=== PATIENT | female | born 1960 | race Hispanic/Latino ===

== ENCOUNTER 2021-06-28 16:25 | Inpatient (IN) | payer BC ==
[~2021-06-28] VITALS: Ht 162.6 cm; Wt 61.4 kg
[~2021-06-28 16:25] MED LIST: AEC81 PO; ATOR40TA71 PO; CARV25TA PO; CLOP75TA32 PO; ESCI-8 PO; FERR-72 PO; FOLI1 PO; IBUP-2070 PO; INSU3INS3 SQ; ISOS10TA2 PO; LEVO500T90 PO; LOSA100T58 PO; METF-526 PO; METR-172 PO; ONDA4TAB10 PO; PANT40TA54 PO; VITAD50000 PO
[2021-06-28] MEDS ORDERED: MAG/ALUM/SIMETH 30 ML UDCUP PO ONE (17:00)
[2021-06-28] MEDS ORDERED: ONDANSETRON 4MG INJ IVP ONE (17:00)
[2021-06-28] MEDS ORDERED: LIDOCAINE HCL 2% VISCOUS 15 ML UDCUP ONE (17:30)
[2021-06-28] MEDS ORDERED: DICYCLOMINE HCL 10 MG/5 ML ML PO ONE (17:31)
[2021-06-28 18:39] LABS: BASOPHILS % (AUTO) 0.3 % (0.0-5.0); EOSINOPHILS % (AUTO) 0.2 % (0.0-8.0); LYMPHOCYTES % (AUTO) 15.2 % (21.0-51.0); MEAN CORPUSCULAR HEMOGLOBIN 27.4 pg (27.0-33.0); MEAN CORPUSCULAR HGB CONC 32.1 g/dL (32.0-36.0); MEAN CORPUSCULAR VOLUME 85.2 fL (79-99); MONOCYTES % (AUTO) 4.9 % (3.0-13.0); NEUTROPHILS % (AUTO) 78.9 % (40.0-77.0); PLATELET COUNT (AUTO) 367 K/uL (130-400); RED BLOOD CELL COUNT(AUTO) 4.46 MIL/uL (4.00-5.50); RED CELL DISTRIBUTION WIDTH 15.5 % (11.0-15.5); WHITE BLOOD COUNT (AUTO) 11.1 K/uL (4.8-10.8)
[2021-06-28 18:39] LABS: APPEARANCE,URINE CLOUDY (CLEAR); BILIRUBIN,URINE MODERATE (NEGATIVE); COLOR,URINE YELLOW (YELLOW); GLUCOSE, URINE (UA) NEGATIVE (NEGATIVE); KETONES,URINE 40 mg/dL (NEGATIVE); LEUKOCYTE ESTERASE ,URINE TRACE (NEGATIVE); NITRATE,URINE NEGATIVE (NEGATIVE); OCCULT BLOOD,URINE NEGATIVE (NEGATIVE); PH,URINE 5.5 (5.0-8.0); PROTEIN,URINE TRACE mg/dL (NEGATIVE)
[2021-06-28 18:46] LABS: CREATININE 0.8 mg/dL (0.5-1.5); POTASSIUM 3.7 mmol/L (3.5-5.1)
[2021-06-28 18:51] LABS: ALBUMIN 3.8 g/dL (3.5-5.0); BILIRUBIN,TOTAL 0.3 mg/dL (0.2-1.0); TOTAL PROTEIN, SERUM 8.5 g/dL (6.0-8.3)
[2021-06-28] MEDS ORDERED: MORPHINE 2 MG SYG IVP ONE (19:00)
[2021-06-28] MEDS ORDERED: ONDANSETRON 4MG INJ IV PRN (19:00)
[2021-06-28] MEDS ORDERED: METRONIDAZOLE 500 MG TABLET PO SCH (19:00)
[2021-06-28] MEDS ORDERED: ZOSYN 3.375GM+NS 50ML 3.38 GM in 0.9%NACL 50ML 50 ML IV SCH (19:00)
[2021-06-28] MEDS ORDERED: ACETAMINOPHEN 325 MG TAB PO PRN (19:00)
[2021-06-28 19:10] LABS: BACTERIA,URINE Few /HPF (None Seen); RBC,URINE 0-1 /HPF (0-1); SQUAMOUS EPITHELIAL CELL,UR Many /HPF (0-2)
[2021-06-28 19:11] LABS: MUCUS,URINE Moderate LPF (None Seen); TRANSITIONAL EPI CELLS,URINE Few /HPF (None Seen)
[2021-06-28 19:39] LABS: PROTHROMBIN TIME 10.9 SEC (9.6-11.6)
[2021-06-28 19:41] LABS: PARTIAL THROMBOPLASTIN TIME 25.5 SEC (26.3-35.5)
[2021-06-28] MEDS ORDERED: 0.9%NACL 50ML 50 ML IV ONE (20:10)
[2021-06-28] MEDS: LACTATED RINGERS 1000ML 1,000 ML IV SCH (20:21)
[2021-06-28] MEDS: FAMOTIDINE 20MG VIAL IV SCH (20:21)
[2021-06-28] MEDS: ZOSYN 3.375GM +NS 50ML IV SCH (20:26)
[2021-06-28] MEDS: METRONIDAZOLE 500MG/100ML BAG 100 ML IV SCH (20:34)
[2021-06-28] MEDS ORDERED: ZOSYN 3.375GM+NS 50ML 50 ML IV SCH (21:00)
[2021-06-29] MEDS: MORPHINE 4 MG SYG IV PRN ×4 (00:32→21:16)
[2021-06-29 01:57] VITALS: BP 128/62
[2021-06-29] MEDS: METRONIDAZOLE 500MG/100ML BAG 100 ML IV SCH ×3 (03:31→21:02)
[2021-06-29 03:52] VITALS: BP 121/71
[2021-06-29] MEDS: ZOSYN 3.375GM +NS 50ML IV SCH ×3 (04:42→21:04)
[2021-06-29 05:24] LABS: BASOPHILS % (AUTO) 0.4 % (0.0-5.0); EOSINOPHILS % (AUTO) 0.8 % (0.0-8.0); HEMATOCRIT 32.4 % (36-48); LYMPHOCYTES % (AUTO) 31.7 % (21.0-51.0); MEAN CORPUSCULAR HEMOGLOBIN 26.8 pg (27.0-33.0); MEAN CORPUSCULAR HGB CONC 31.5 g/dL (32.0-36.0); MONOCYTES % (AUTO) 8.6 % (3.0-13.0); NEUTROPHILS % (AUTO) 58.1 % (40.0-77.0); PLATELET COUNT (AUTO) 304 K/uL (130-400); RED BLOOD CELL COUNT(AUTO) 3.81 MIL/uL (4.00-5.50); RED CELL DISTRIBUTION WIDTH 15.7 % (11.0-15.5); WHITE BLOOD COUNT (AUTO) 7.3 K/uL (4.8-10.8)
[2021-06-29 05:35] LABS: CREATININE 0.7 mg/dL (0.5-1.5); MAGNESIUM 2.1 mg/dL (1.80-2.40); PHOSPHORUS 4.1 mg/dL (2.5-4.9); POTASSIUM 3.8 mmol/L (3.5-5.1)
[2021-06-29 08:55] VITALS: BP 114/59
[2021-06-29] MEDS: FAMOTIDINE 20MG VIAL IV SCH ×2 (09:11→21:02)
[2021-06-29] MEDS: LACTATED RINGERS 1000ML 1,000 ML IV SCH (09:12)
[2021-06-29 11:09] VITALS: BP 116/67
[2021-06-29] MEDS ORDERED: PHENOL 177 ML BOTTLE PO PRN (12:00)
[2021-06-29 17:07] VITALS: BP 126/69
[2021-06-29 20:00] VITALS: BP 126/75
[2021-06-30] VITALS (7 sets, daily range): BP systolic 118–129; BP diastolic 59–71
[2021-06-30] MEDS: ZOSYN 3.375GM +NS 50ML IV SCH ×3 (03:28→20:21)
[2021-06-30] MEDS: LACTATED RINGERS 1000ML 1,000 ML IV SCH ×2 (03:28→11:00)
[2021-06-30] MEDS: METRONIDAZOLE 500MG/100ML BAG 100 ML IV SCH ×3 (03:28→20:19)
[2021-06-30] MEDS: MORPHINE 4 MG SYG IV PRN ×2 (03:33→11:52)
[2021-06-30] MEDS: FAMOTIDINE 20MG VIAL IV SCH ×2 (09:12→20:18)
[2021-07-01] MEDS: LACTATED RINGERS 1000ML 1,000 ML IV SCH ×2 (00:20→13:39)
[2021-07-01 04:36] VITALS: BP 127/75
[2021-07-01] MEDS: ZOSYN 3.375GM +NS 50ML IV SCH ×3 (04:50→22:44)
[2021-07-01] MEDS: METRONIDAZOLE 500MG/100ML BAG 100 ML IV SCH ×3 (04:51→21:24)
[2021-07-01 05:01] LABS: HEMATOCRIT 34.8 % (36-48); MEAN CORPUSCULAR HEMOGLOBIN 27.3 pg (27.0-33.0); MEAN CORPUSCULAR VOLUME 88.1 fL (79-99); PLATELET COUNT (AUTO) 294 K/uL (130-400); RED BLOOD CELL COUNT(AUTO) 3.95 MIL/uL (4.00-5.50); RED CELL DISTRIBUTION WIDTH 15.5 % (11.0-15.5); WHITE BLOOD COUNT (AUTO) 6.9 K/uL (4.8-10.8)
[2021-07-01] MEDS: MORPHINE 4 MG SYG IV PRN (05:04)
[2021-07-01 05:20] LABS: CREATININE 0.7 mg/dL (0.5-1.5); POTASSIUM 3.5 mmol/L (3.5-5.1)
[2021-07-01 08:00] VITALS: BP 122/66
[2021-07-01] MEDS: FAMOTIDINE 20MG VIAL IV SCH ×2 (09:38→20:42)
[2021-07-01 12:00] VITALS: BP 118/63
[2021-07-01] MEDS: DOCUSATE SODIUM 100 MG CAP PO SCH (13:39)
[2021-07-01 16:00] VITALS: BP 115/65
[2021-07-01 19:50] VITALS: BP 139/67
[2021-07-01 23:32] VITALS: BP 146/56
[2021-07-02] MEDS: LACTATED RINGERS 1000ML 1,000 ML IV SCH (03:00)
[2021-07-02 04:32] VITALS: BP 116/65
[2021-07-02] MEDS: METRONIDAZOLE 500MG/100ML BAG 100 ML IV SCH ×2 (05:57→13:31)
[2021-07-02] MEDS: ZOSYN 3.375GM +NS 50ML IV SCH ×2 (05:57→14:00)
[2021-07-02 08:00] VITALS: BP 116/81
[2021-07-02] MEDS: FAMOTIDINE 20MG VIAL IV SCH (09:44)
[2021-07-02 12:00] VITALS: BP 105/50
[2021-07-02] MEDS: DOCUSATE SODIUM 100 MG CAP PO SCH (13:31)
== END 2021-07-02 18:30 | disposition home or self-care (01) | DRG 394 ==
LOC: EDH 16:25 → EDHIP 18:54 → 3BH 06-29 00:44
PROVIDERS: ADMIT Internal Medicine; ATTEND Internal Medicine
PROC: 0D9670Z Drainage of Stomach with Drainage Device, Via Natural or Artificial Opening (ICD-10-PCS; principal; 2021-06-28)
DX: K43.6 Other and unspecified ventral hernia with obstruction, without gangrene (principal); N39.0 Urinary tract infection, site not specified; K57.90 Diverticulosis of intestine, part unspecified, without perforation or abscess without bleeding; I10 Essential (primary) hypertension; D72.829 Elevated white blood cell count, unspecified; Z20.822 Contact with and (suspected) exposure to COVID-19; Z90.49 Acquired absence of other specified parts of digestive tract; Z82.3 Family history of stroke; Z84.1 Family history of disorders of kidney and ureter; Z82.49 Family history of ischemic heart disease and other diseases of the circulatory system; D64.9 Anemia, unspecified
CPT/HCPCS: 36415; 71045; 74176; 80048; 80053; 81001; 83605; 83615; 83690; 83735; 84100; 84484; 85025; 85027; 85610; 85730; 87040; 87088; 87635; 93005; G0378; J2270; J2405; J2543; J3490; J7120

== ENCOUNTER 2021-07-07 04:14 | Inpatient (IN) | payer BC ==
[~2021-07-07] VITALS: Ht 160 cm; Wt 63.8 kg
[2021-07-07] MEDS: ZOSYN 3.375GM+NS 50ML 50 ML IV SCH ×2 (01:00→14:00)
[2021-07-07] MEDS ORDERED: ONDANSETRON 4MG INJ IVP ONE (04:30)
[2021-07-07] MEDS ORDERED: METOCLOPRAMIDE 10 MG/2 ML VIAL IVP ONE (04:30)
[2021-07-07] MEDS ORDERED: 0.9%NACL 1000ML 1,000 ML IV ONE (04:30)
[2021-07-07] MEDS ORDERED: METOCLOPRAMIDE 10 MG/2 ML VIAL ONE (04:39)
[2021-07-07] MEDS ORDERED: ACETAMINOPHEN 500 MG TABLET ONE (04:40)
[2021-07-07] MEDS ORDERED: ZOSYN 3.375GM+NS 50ML 50 ML ONE (04:40)
[2021-07-07] MEDS ORDERED: ONDANSETRON 4MG INJ ONE (04:40)
[2021-07-07 05:00] LABS: BASOPHILS % (AUTO) 0.2 % (0.0-5.0); EOSINOPHILS % (AUTO) 1.9 % (0.0-8.0); HEMATOCRIT 32.4 % (36-48); MEAN CORPUSCULAR HEMOGLOBIN 27.2 pg (27.0-33.0); MEAN CORPUSCULAR HGB CONC 32.7 g/dL (32.0-36.0); MEAN CORPUSCULAR VOLUME 83.3 fL (79-99); MONOCYTES % (AUTO) 3.3 % (3.0-13.0); NEUTROPHILS % (AUTO) 89.4 % (40.0-77.0); PLATELET COUNT (AUTO) 275 K/uL (130-400); RED BLOOD CELL COUNT(AUTO) 3.89 MIL/uL (4.00-5.50); RED CELL DISTRIBUTION WIDTH 16.1 % (11.0-15.5)
[2021-07-07] MEDS ORDERED: ACETAMINOPHEN 500 MG TABLET PO ONE (05:00)
[2021-07-07] MEDS ORDERED: ZOSYN 3.375GM+NS 50ML 3.38 GM in 0.9%NACL 50ML 50 ML IV SCH ×2 (05:00→08:30)
[2021-07-07] MEDS ORDERED: MORPHINE 2 MG SYG IVP ONE (05:00)
[2021-07-07 05:10] LABS: INR 1.19 (0.85-1.15); PROTHROMBIN TIME 12.8 SEC (9.6-11.6)
[2021-07-07 05:12] LABS: PARTIAL THROMBOPLASTIN TIME 29.1 SEC (26.3-35.5)
[2021-07-07 05:21] LABS: CARBON DIOXIDE 25 mmol/L (21-32); CHLORIDE 102 mmol/L (101-111); CREATININE 0.6 mg/dL (0.5-1.5); GLOMERULAR FILTR. RATE CALC 108 mL/min (>60); GLUCOSE,RANDOM 123 mg/dL (70-105); SODIUM SERUM 137 mmol/L (136-145); UREA NITROGEN, BLOOD 13 mg/dL (7-18)
[2021-07-07 05:25] LABS: ALANINE AMINOTRANSFERASE 35 U/L (12-78); ALBUMIN 2.6 g/dL (3.5-5.0); ASPARTATE AMINOTRANSFERASE 20 U/L (10-37); BILIRUBIN,TOTAL 0.8 mg/dL (0.2-1.0); TOTAL PROTEIN, SERUM 6.8 g/dL (6.0-8.3)
[2021-07-07 05:51] LABS: LIPASE < 50 U/L (114-286)
[2021-07-07] MEDS ORDERED: IOHEXOL 350 MG/ML 100ML INFUS..BTL IV ONE (06:01)
[2021-07-07 07:11] LABS: APPEARANCE,URINE Clear (CLEAR); BILIRUBIN,URINE Small (NEGATIVE); COLOR,URINE Dark Yellow (YELLOW); GLUCOSE, URINE (UA) Negative (NEGATIVE); KETONES,URINE Trace mg/dL (NEGATIVE); LEUKOCYTE ESTERASE ,URINE Trace (NEGATIVE); NITRATE,URINE Negative (NEGATIVE); OCCULT BLOOD,URINE Trace (NEGATIVE); PH,URINE 7.5 (5.0-8.0); PROTEIN,URINE POS 2+ mg/dL (NEGATIVE)
[2021-07-07 07:44] LABS: BACTERIA,URINE Rare /HPF (None Seen); RBC,URINE 0-1 /HPF (0-1); SQUAMOUS EPITHELIAL CELL,UR Few /HPF (0-2)
[2021-07-07] MEDS ORDERED: 0.9%NACL 1000ML 1,000 ML IV SCH (08:00)
[2021-07-07] MEDS ORDERED: POTASSIUM CHLORIDE 10MEQ/100ML 10 MEQ/100 ML ML IV ONE (08:00)
[2021-07-07] MEDS ORDERED: POTASSIUM CHLORIDE 10MEQ/100ML 100 ML IV SCH ×2 (08:00)
[2021-07-07] MEDS ORDERED: VANCOMYCIN PROTOCOL PER PHARMACY IV SCH (08:30)
[2021-07-07 08:39] LABS: ABG BASE EXCESS -0.6 mmol/L (-2.0-3.0); ABG HCO3 22.9 mmol/L (21.0-28.0); ABG OXYGEN SATURATION 97.7 % (95.0-99.0); ABG PCO2 35 mmHg (32-45)
[2021-07-07] MEDS ORDERED: 0.9% NACL 250ML 250 ML IV SCH (10:00)
[2021-07-07] MEDS ORDERED: VANCOMYCIN KIT 1 GM/250 ML IV.KIT IV SCH (10:00)
[2021-07-07] MEDS ORDERED: MORPHINE 2 MG SYG IVP PRN ×2 (11:30→14:00)
[2021-07-07] MEDS ORDERED: MAGNESIUM 2GM PREMIX 50ML 50 ML IV SCH (12:00)
[2021-07-07] MEDS ORDERED: MAGNESIUM 2GM PREMIX 50ML 50 ML IV ONE (12:12)
[2021-07-07] MEDS: LACTATED RINGERS 1000ML 1,000 ML IV SCH ×2 (12:48→19:46)
[2021-07-07] MEDS: FLUCONAZOLE 200 MG/NS 100 ML 100 ML IV SCH (15:43)
[2021-07-07 17:24] LABS: CREATININE 0.6 mg/dL (0.5-1.5); MAGNESIUM 2.3 mg/dL (1.80-2.40); POTASSIUM 3.7 mmol/L (3.5-5.1)
[2021-07-07] MEDS: FAMOTIDINE 20MG VIAL IV SCH (21:53)
[2021-07-07] MEDS: VANCOMYCIN 500MG+NS 100ML 100 ML IV SCH (21:53)
[2021-07-08] VITALS (7 sets, daily range): BP systolic 102–133; BP diastolic 52–69
[2021-07-08] MEDS: ZOSYN 3.375GM+NS 50ML 50 ML IV SCH ×3 (05:00→19:47)
[2021-07-08] MEDS: LACTATED RINGERS 1000ML 1,000 ML IV SCH ×3 (05:04→23:41)
[2021-07-08] MEDS: MORPHINE 2 MG SYG IVP PRN ×2 (05:07→11:22)
[2021-07-08 07:11] LABS: BASOPHILS % (AUTO) 0.2 % (0.0-5.0); EOSINOPHILS % (AUTO) 0.4 % (0.0-8.0); HEMATOCRIT 27.8 % (36-48); LYMPHOCYTES % (AUTO) 8.9 % (21.0-51.0); MEAN CORPUSCULAR HEMOGLOBIN 27.1 pg (27.0-33.0); MEAN CORPUSCULAR HGB CONC 32.4 g/dL (32.0-36.0); MEAN CORPUSCULAR VOLUME 83.7 fL (79-99); MONOCYTES % (AUTO) 6.5 % (3.0-13.0); NEUTROPHILS % (AUTO) 83.6 % (40.0-77.0); PLATELET COUNT (AUTO) 293 K/uL (130-400); RED BLOOD CELL COUNT(AUTO) 3.32 MIL/uL (4.00-5.50); RED CELL DISTRIBUTION WIDTH 16.7 % (11.0-15.5); WHITE BLOOD COUNT (AUTO) 11.3 K/uL (4.8-10.8)
[2021-07-08 07:29] LABS: ALBUMIN 1.7 g/dL (3.5-5.0); BILIRUBIN,TOTAL 0.4 mg/dL (0.2-1.0); CREATININE 0.6 mg/dL (0.5-1.5); POTASSIUM 3.4 mmol/L (3.5-5.1); TOTAL PROTEIN, SERUM 5.3 g/dL (6.0-8.3)
[2021-07-08] MEDS ORDERED: 0.9%NACL 50ML 50 ML IV ONE (07:45)
[2021-07-08] MEDS: FAMOTIDINE 20MG VIAL IV SCH ×2 (08:46→19:47)
[2021-07-08] MEDS: ENOXAPARIN SODIUM 40 MG/0.4 ML SYRINGE SQ SCH (08:47)
[2021-07-08] MEDS: VANCOMYCIN 500MG+NS 100ML 100 ML IV SCH (09:41)
[2021-07-08] MEDS ORDERED: 0.9%NACL 100ML 100 ML ONE (09:41)
[2021-07-08] MEDS ORDERED: POTASSIUM CHLORIDE 20MEQ/100ML 100 ML IV ONE (11:01)
[2021-07-08] MEDS: FLUCONAZOLE 200 MG/NS 100 ML 100 ML IV SCH (13:05)
[2021-07-08] MEDS: 0.9% NACL 250ML 250 ML IV SCH (18:03)
[2021-07-08] MEDS: VANCOMYCIN KIT 1 GM/250 ML IV.KIT IV SCH (18:03)
[2021-07-09] VITALS (20 sets, daily range): BP systolic 106–127; BP diastolic 26–80
[2021-07-09] MEDS: MORPHINE 2 MG SYG IVP PRN ×3 (02:03→23:45)
[2021-07-09] MEDS: ZOSYN 3.375GM+NS 50ML 50 ML IV SCH ×3 (03:11→23:21)
[2021-07-09] MEDS: VANCOMYCIN KIT 1 GM/250 ML IV.KIT IV SCH ×2 (05:31→18:00)
[2021-07-09] MEDS: 0.9% NACL 250ML 250 ML IV SCH ×2 (05:31→18:00)
[2021-07-09] MEDS: LACTATED RINGERS 1000ML 1,000 ML IV SCH ×4 (07:00→21:10)
[2021-07-09] MEDS ORDERED: DIATR MEGLU/DIATRIZOATE SODIUM 30 ML BOTTLE ONE (08:49)
[2021-07-09] MEDS: ENOXAPARIN SODIUM 40 MG/0.4 ML SYRINGE SQ SCH (09:00)
[2021-07-09] MEDS: FAMOTIDINE 20MG VIAL IV SCH ×2 (09:00→21:00)
[2021-07-09] MEDS: FLUCONAZOLE 200 MG/NS 100 ML 100 ML IV SCH (13:00)
[2021-07-09] MEDS ORDERED: IOHEXOL-350 75 ML VIAL IV ONE (14:31)
[2021-07-09] MEDS ORDERED: ONDANSETRON 4MG INJ ONE (17:57)
[2021-07-09] MEDS ORDERED: MIDAZOLAM HCL 1 MG/ML 2ML VIAL ONE (17:57)
[2021-07-09] MEDS ORDERED: PROPOFOL 10 MG/ML 20ML VIAL IV ONE (17:57)
[2021-07-09] MEDS ORDERED: ROCURONIUM 10MG/1ML SYR 10 MG/ML ML ONE ×2 (17:57→19:56)
[2021-07-09] MEDS ORDERED: DEXAMETHASONE SOD PHOSPHATE 10MG/ML 1ML VIAL ONE (17:57)
[2021-07-09] MEDS ORDERED: FENTANYL CITRATE PF 50 MCG/1 ML 2ML VIAL ONE ×2 (17:58→19:49)
[2021-07-09] MEDS ORDERED: ALBUMIN (HUMAN) 5% 250 ML IV ONE (20:06)
[2021-07-09] MEDS ORDERED: ALBUMIN (HUMAN) 25% 50 ML IV ONE (20:07)
[2021-07-09] MEDS ORDERED: SODIUM BICARB 8.4% 50ML SYRINGE ONE (20:14)
[2021-07-09] MEDS ORDERED: GLYCOPYRROLATE 1 MG/5 ML SYRINGE ONE (20:31)
[2021-07-09] MEDS ORDERED: NEOSTIGMINE 5MG/5ML SYR IV ONE (20:31)
[2021-07-09] MEDS ORDERED: MEPERIDINE-PF 25 MG/ML SYG ONE ×2 (20:42→21:32)
[2021-07-09] MEDS ORDERED: SUGAMMADEX SODIUM 200 MG/2 ML VIAL IV ONE (21:11)
[2021-07-09] MEDS ORDERED: KETOROLAC 30MG VIAL (30MG/ML) ONE (21:44)
[2021-07-10] VITALS (7 sets, daily range): BP systolic 105–154; BP diastolic 52–89
[2021-07-10 05:12] LABS: HEMATOCRIT 28.1 % (36-48); MEAN CORPUSCULAR HEMOGLOBIN 26.4 pg (27.0-33.0); MEAN CORPUSCULAR HGB CONC 31.7 g/dL (32.0-36.0); MEAN CORPUSCULAR VOLUME 83.4 fL (79-99); RED BLOOD CELL COUNT(AUTO) 3.37 MIL/uL (4.00-5.50); RED CELL DISTRIBUTION WIDTH 17.1 % (11.0-15.5); WHITE BLOOD COUNT (AUTO) 7.6 K/uL (4.8-10.8)
[2021-07-10 05:24] LABS: CREATININE 0.5 mg/dL (0.5-1.5)
[2021-07-10 05:29] LABS: POTASSIUM 2.7 mmol/L (3.5-5.1)
[2021-07-10] MEDS: MORPHINE 2 MG SYG IVP PRN ×2 (06:09→22:24)
[2021-07-10] MEDS: POTASSIUM CHLORIDE 20MEQ/100ML 100 ML IV PRN ×3 (06:09→20:17)
[2021-07-10] MEDS: LACTATED RINGERS 1000ML 1,000 ML IV SCH ×2 (07:00→15:42)
[2021-07-10] MEDS: ENOXAPARIN SODIUM 40 MG/0.4 ML SYRINGE SQ SCH ×2 (09:00→15:19)
[2021-07-10] MEDS: ZOSYN 3.375GM+NS 50ML 50 ML IV SCH ×3 (09:27→20:18)
[2021-07-10] MEDS: FAMOTIDINE 20MG VIAL IV SCH ×2 (09:27→20:17)
[2021-07-10 12:49] LABS: CREATININE 0.6 mg/dL (0.5-1.5)
[2021-07-10 12:57] LABS: POTASSIUM 2.9 mmol/L (3.5-5.1)
[2021-07-10] MEDS ORDERED: LIDOCAINE HCL-MPF 1% 2ML VIAL IV PRN (13:00)
[2021-07-10] MEDS ORDERED: POTASSIUM CHLORIDE 20MEQ/100ML 100 ML IV PRN (13:00)
[2021-07-10] MEDS: FLUCONAZOLE 200 MG/NS 100 ML 100 ML IV SCH (13:28)
[2021-07-10] MEDS: LIDOCAINE HCL-MPF 1% 2ML VIAL IV PRN (20:20)
[2021-07-11] VITALS: BP 105/56
[2021-07-11] MEDS: LACTATED RINGERS 1000ML 1,000 ML IV SCH (02:30)
[2021-07-11 04:00] VITALS: BP 98/55
[2021-07-11] MEDS: ZOSYN 3.375GM+NS 50ML 50 ML IV SCH ×3 (05:07→20:23)
[2021-07-11 06:17] LABS: CREATININE 0.5 mg/dL (0.5-1.5); MAGNESIUM 2.1 mg/dL (1.80-2.40); POTASSIUM 3.3 mmol/L (3.5-5.1)
[2021-07-11] MEDS: FAMOTIDINE 20MG VIAL IV SCH ×2 (07:26→20:23)
[2021-07-11] MEDS: ENOXAPARIN SODIUM 40 MG/0.4 ML SYRINGE SQ SCH (07:26)
[2021-07-11 08:00] VITALS: BP 108/59
[2021-07-11 12:00] VITALS: BP 110/63
[2021-07-11] MEDS: FLUCONAZOLE 200 MG/NS 100 ML 100 ML IV SCH (12:22)
[2021-07-11 16:00] VITALS: BP 118/66
[2021-07-11] MEDS: MORPHINE 2 MG SYG IVP PRN ×2 (17:27→23:17)
[2021-07-11 20:00] VITALS: BP_SYST 119; BP_SYST 134; BP_DIAS 53; BP_DIAS 65
[2021-07-12] VITALS (7 sets, daily range): BP systolic 111–126; BP diastolic 56–67
[2021-07-12] MEDS: ZOSYN 3.375GM+NS 50ML 50 ML IV SCH ×3 (05:00→20:12)
[2021-07-12] MEDS: MORPHINE 2 MG SYG IVP PRN ×2 (07:47→15:24)
[2021-07-12] MEDS: FAMOTIDINE 20MG VIAL IV SCH ×2 (09:26→20:12)
[2021-07-12] MEDS: ENOXAPARIN SODIUM 40 MG/0.4 ML SYRINGE SQ SCH (09:27)
[2021-07-12] MEDS: FLUCONAZOLE 200 MG/NS 100 ML 100 ML IV SCH (12:46)
[2021-07-12] MEDS: LIDOCAINE HCL-MPF 1% 2ML VIAL IV PRN ×2 (18:15→22:46)
[2021-07-12] MEDS: POTASSIUM CHLORIDE 20MEQ/100ML 100 ML IV PRN ×2 (18:15→20:12)
[2021-07-12] MEDS ORDERED: LIDOCAINE HCL-MPF 1% 2ML VIAL IV PRN (23:00)
[2021-07-12] MEDS ORDERED: POTASSIUM CHLORIDE 20MEQ/100ML 100 ML IV PRN (23:00)
[2021-07-12] MEDS ORDERED: KCL 20 MEQ ERTAB PO PRN (23:00)
[2021-07-12] MEDS ORDERED: MORPHINE 2 MG SYG ONE (23:31)
[2021-07-13] MEDS ORDERED: MORPHINE 2 MG SYG IVP PRN (01:00)
[2021-07-13 04:00] VITALS: BP 126/64
[2021-07-13] MEDS: ZOSYN 3.375GM+NS 50ML 50 ML IV SCH ×3 (04:09→22:24)
[2021-07-13] MEDS: POTASSIUM CHLORIDE 10% ELIXIR 20 MEQ/15 ML UDCUP PO PRN ×4 (05:12→15:23)
[2021-07-13] MEDS: MORPHINE 2 MG SYG IVP PRN (06:16)
[2021-07-13 08:00] VITALS: BP 128/56
[2021-07-13] MEDS: FAMOTIDINE 20MG VIAL IV SCH ×2 (08:31→22:23)
[2021-07-13] MEDS: ENOXAPARIN SODIUM 40 MG/0.4 ML SYRINGE SQ SCH (08:31)
[2021-07-13] MEDS: POTASSIUM CHLORIDE 20MEQ/100ML 100 ML IV PRN ×2 (08:32→11:30)
[2021-07-13 12:00] VITALS: BP 124/59
[2021-07-13] MEDS: FLUCONAZOLE 200 MG/NS 100 ML 100 ML IV SCH (15:23)
[2021-07-13 16:00] VITALS: BP 115/51
[2021-07-13 17:46] LABS: BASOPHILS % (AUTO) 0.2 % (0.0-5.0); EOSINOPHILS % (AUTO) 0.2 % (0.0-8.0); MEAN CORPUSCULAR HEMOGLOBIN 26.7 pg (27.0-33.0); MEAN CORPUSCULAR HGB CONC 31.1 g/dL (32.0-36.0); MEAN CORPUSCULAR VOLUME 85.8 fL (79-99); MONOCYTES % (AUTO) 3.7 % (3.0-13.0); NEUTROPHILS % (AUTO) 81.3 % (40.0-77.0); PLATELET COUNT (AUTO) 379 K/uL (130-400); RED CELL DISTRIBUTION WIDTH 18.1 % (11.0-15.5); WHITE BLOOD COUNT (AUTO) 12.6 K/uL (4.8-10.8)
[2021-07-13 17:58] LABS: HEMATOCRIT 20.6 % (36-48)
[2021-07-13] MEDS ORDERED: ONDANSETRON 4MG INJ IVP PRN (18:30)
[2021-07-13 18:39] LABS: BILIRUBIN,TOTAL 0.5 mg/dL (0.2-1.0); CREATININE 0.5 mg/dL (0.5-1.5); MAGNESIUM 1.9 mg/dL (1.80-2.40); PHOSPHORUS 1.4 mg/dL (2.5-4.9)
[2021-07-13 18:40] LABS: ALBUMIN 1.4 g/dL (3.5-5.0); TOTAL PROTEIN, SERUM 5.7 g/dL (6.0-8.3)
[2021-07-13 18:44] LABS: CRP QUANTITATIVE 307.6 mg/L (0.00-9.0)
[2021-07-13 19:06] LABS: ERYTHROCYTE SEDIMENTATION RATE 80 MM/HR (0-30)
[2021-07-13] MEDS ORDERED: EPOETIN ALFA-EPBX (NON-ESRD) 10,000 UNIT/ML VIAL SQ SCH (19:30)
[2021-07-13 19:59] VITALS: BP 118/61
[2021-07-13] MEDS ORDERED: COMPOUND IV MISC 1 EACH IVSOLN MISC PRN (20:00)
[2021-07-13] MEDS: IRON SUCROSE COMPLEX 100 MG in 0.9%NACL 50ML 50 ML IV SCH (22:22)
[2021-07-13 23:28] VITALS: BP 116/55
[2021-07-14] MEDS: MORPHINE 2 MG SYG IVP PRN (03:28)
[2021-07-14 04:39] LABS: BASOPHILS % (AUTO) 0.1 % (0.0-5.0); EOSINOPHILS % (AUTO) 0.4 % (0.0-8.0); LYMPHOCYTES % (AUTO) 8.2 % (21.0-51.0); MEAN CORPUSCULAR HEMOGLOBIN 27.1 pg (27.0-33.0); MEAN CORPUSCULAR HGB CONC 33.2 g/dL (32.0-36.0); MEAN CORPUSCULAR VOLUME 81.7 fL (79-99); MONOCYTES % (AUTO) 4.1 % (3.0-13.0); NEUTROPHILS % (AUTO) 84.6 % (40.0-77.0); PLATELET COUNT (AUTO) 371 K/uL (130-400); RED CELL DISTRIBUTION WIDTH 17.5 % (11.0-15.5); WHITE BLOOD COUNT (AUTO) 15.7 K/uL (4.8-10.8)
[2021-07-14 04:55] VITALS: BP 116/61
[2021-07-14 05:04] LABS: HEMATOCRIT 19.6 % (36-48)
[2021-07-14 05:18] LABS: % IRON SATURATION 68.2 % (22-44)
[2021-07-14 05:26] LABS: ALBUMIN 1.3 g/dL (3.5-5.0); BILIRUBIN,TOTAL 0.5 mg/dL (0.2-1.0); CREATININE 0.5 mg/dL (0.5-1.5); POTASSIUM 3.7 mmol/L (3.5-5.1); THYROID STIMULATING HORMONE 1.52 uIU/mL (0.36-3.74); TOTAL PROTEIN, SERUM 5.2 g/dL (6.0-8.3)
[2021-07-14] MEDS: ZOSYN 3.375GM+NS 50ML 50 ML IV SCH ×3 (05:32→20:48)
[2021-07-14 05:54] LABS: CRP QUANTITATIVE 315.2 mg/L (0.00-9.0)
[2021-07-14 06:09] LABS: ERYTHROCYTE SEDIMENTATION RATE 96 MM/HR (0-30)
[2021-07-14 07:54] VITALS: BP 120/67
[2021-07-14] MEDS: FAMOTIDINE 20MG VIAL IV SCH ×2 (09:49→20:48)
[2021-07-14] MEDS: IRON SUCROSE COMPLEX 100 MG in 0.9%NACL 50ML 50 ML IV SCH (09:52)
[2021-07-14 11:37] VITALS: BP 121/65
[2021-07-14] MEDS: FLUCONAZOLE 200 MG/NS 100 ML 100 ML IV SCH (12:17)
[2021-07-14] MEDS ORDERED: DIATR MEGLU/DIATRIZOATE SODIUM 30 ML BOTTLE ONE (14:05)
[2021-07-14 16:00] VITALS: BP 125/68
[2021-07-14] MEDS ORDERED: IOHEXOL-350 75 ML VIAL IV ONE (16:23)
[2021-07-14 20:56] VITALS: BP 123/60
[2021-07-15] VITALS (11 sets, daily range): BP systolic 117–135; BP diastolic 62–102
[2021-07-15] MEDS: ZOSYN 3.375GM+NS 50ML 50 ML IV SCH ×3 (04:12→19:44)
[2021-07-15] MEDS: MORPHINE 2 MG SYG IVP PRN (04:32)
[2021-07-15 04:46] LABS: BASOPHILS % (AUTO) 0.2 % (0.0-5.0); EOSINOPHILS % (AUTO) 0.4 % (0.0-8.0); LYMPHOCYTES % (AUTO) 8.3 % (21.0-51.0); MEAN CORPUSCULAR HEMOGLOBIN 26.3 pg (27.0-33.0); MEAN CORPUSCULAR HGB CONC 32.7 g/dL (32.0-36.0); MEAN CORPUSCULAR VOLUME 80.3 fL (79-99); MONOCYTES % (AUTO) 4.5 % (3.0-13.0); NEUTROPHILS % (AUTO) 82.6 % (40.0-77.0); PLATELET COUNT (AUTO) 381 K/uL (130-400); RED BLOOD CELL COUNT(AUTO) 2.59 MIL/uL (4.00-5.50); RED CELL DISTRIBUTION WIDTH 17.5 % (11.0-15.5); WHITE BLOOD COUNT (AUTO) 16.8 K/uL (4.8-10.8)
[2021-07-15 04:54] LABS: HEMATOCRIT 20.8 % (36-48)
[2021-07-15 05:13] LABS: ALBUMIN 1.4 g/dL (3.5-5.0); BILIRUBIN,TOTAL 0.3 mg/dL (0.2-1.0); CREATININE 0.5 mg/dL (0.5-1.5); TOTAL PROTEIN, SERUM 5.8 g/dL (6.0-8.3)
[2021-07-15 05:18] LABS: POTASSIUM 2.9 mmol/L (3.5-5.1)
[2021-07-15] MEDS: POTASSIUM CHLORIDE 10% ELIXIR 20 MEQ/15 ML UDCUP PO PRN ×4 (05:30→17:04)
[2021-07-15] MEDS: POTASSIUM CHLORIDE 20MEQ/100ML 100 ML IV PRN (05:30)
[2021-07-15] MEDS: FAMOTIDINE 20MG VIAL IV SCH ×2 (09:22→19:45)
[2021-07-15] MEDS: IRON SUCROSE COMPLEX 100 MG in 0.9%NACL 50ML 50 ML IV SCH (09:22)
[2021-07-15] MEDS ORDERED: FENTANYL CITRATE PF 50 MCG/1 ML 2ML VIAL ONE (14:51)
[2021-07-15] MEDS ORDERED: MIDAZOLAM HCL 1 MG/ML 2ML VIAL ONE (14:51)
[2021-07-15] MEDS: FLUCONAZOLE 200 MG/NS 100 ML 100 ML IV SCH (15:42)
[2021-07-15] MEDS ORDERED: SPIRONOLACTONE 25 MG TAB PO SCH (20:30)
[2021-07-15] MEDS ORDERED: EPOETIN ALFA-EPBX (NON-ESRD) 10,000 UNIT/ML VIAL SQ SCH (20:30)
[2021-07-15 21:20] LABS: MAGNESIUM 1.9 mg/dL (1.80-2.40); POTASSIUM 3.4 mmol/L (3.5-5.1)
[2021-07-16] VITALS (7 sets, daily range): BP systolic 99–134; BP diastolic 58–71
[2021-07-16] MEDS: POTASSIUM CHLORIDE 10% ELIXIR 20 MEQ/15 ML UDCUP PO PRN ×2 (00:12→02:12)
[2021-07-16] MEDS: MORPHINE 2 MG SYG IVP PRN ×3 (00:32→23:39)
[2021-07-16 03:53] LABS: BASOPHILS % (AUTO) 0.1 % (0.0-5.0); EOSINOPHILS % (AUTO) 0.9 % (0.0-8.0); LYMPHOCYTES % (AUTO) 10.2 % (21.0-51.0); MEAN CORPUSCULAR HEMOGLOBIN 26.3 pg (27.0-33.0); MEAN CORPUSCULAR HGB CONC 32.1 g/dL (32.0-36.0); MEAN CORPUSCULAR VOLUME 81.7 fL (79-99); MONOCYTES % (AUTO) 5.8 % (3.0-13.0); NEUTROPHILS % (AUTO) 79.1 % (40.0-77.0); PLATELET COUNT (AUTO) 430 K/uL (130-400); RED CELL DISTRIBUTION WIDTH 18.1 % (11.0-15.5); WHITE BLOOD COUNT (AUTO) 12.8 K/uL (4.8-10.8)
[2021-07-16 04:09] LABS: HEMATOCRIT 19.6 % (36-48)
[2021-07-16 04:16] LABS: ALBUMIN 1.4 g/dL (3.5-5.0); BILIRUBIN,TOTAL 0.2 mg/dL (0.2-1.0); CREATININE 0.5 mg/dL (0.5-1.5); MAGNESIUM 1.9 mg/dL (1.80-2.40); PHOSPHORUS 3.2 mg/dL (2.5-4.9); POTASSIUM 4.2 mmol/L (3.5-5.1); TOTAL PROTEIN, SERUM 5.8 g/dL (6.0-8.3)
[2021-07-16 04:56] LABS: CRP QUANTITATIVE 267.2 mg/L (0.00-9.0)
[2021-07-16] MEDS: ZOSYN 3.375GM+NS 50ML 50 ML IV SCH ×3 (06:03→20:54)
[2021-07-16] MEDS: ASCORBIC ACID 500 MG TAB PO SCH (10:05)
[2021-07-16] MEDS: FAMOTIDINE 20MG VIAL IV SCH ×2 (10:05→20:54)
[2021-07-16] MEDS: ZINC SULFATE 220 CAPSULE PO SCH (10:05)
[2021-07-16] MEDS: SPIRONOLACTONE 25 MG TAB PO SCH (10:05)
[2021-07-16] MEDS: IRON SUCROSE COMPLEX 100 MG in 0.9%NACL 50ML 50 ML IV SCH (10:06)
[2021-07-16] MEDS: FLUCONAZOLE 200 MG/NS 100 ML 100 ML IV SCH (13:29)
[2021-07-17] MEDS: ZOSYN 3.375GM+NS 50ML 50 ML IV SCH ×2 (04:22→11:04)
[2021-07-17 04:35] VITALS: BP 117/67
[2021-07-17] MEDS: MORPHINE 2 MG SYG IVP PRN (06:15)
[2021-07-17 08:19] VITALS: BP 115/63
[2021-07-17] MEDS: IRON SUCROSE COMPLEX 100 MG in 0.9%NACL 50ML 50 ML IV SCH (11:03)
[2021-07-17] MEDS: FLUCONAZOLE 200 MG/NS 100 ML 100 ML IV SCH (11:03)
[2021-07-17] MEDS: ASCORBIC ACID 500 MG TAB PO SCH (11:03)
[2021-07-17] MEDS: ZINC SULFATE 220 CAPSULE PO SCH (11:03)
[2021-07-17] MEDS: FAMOTIDINE 20MG VIAL IV SCH (11:03)
[2021-07-17] MEDS: SPIRONOLACTONE 25 MG TAB PO SCH (11:04)
[2021-07-17 11:55] VITALS: BP 131/67
[2021-07-17 16:52] VITALS: BP 126/69
== END 2021-07-17 18:51 | DRG 856 ==
LOC: EDH 04:14 → EDHIP 08:06 → 4CH 07-08 15:00
PROVIDERS: ADMIT Internal Medicine; ATTEND Internal Medicine
PROC: 0DTF0ZZ Resection of Right Large Intestine, Open Approach (ICD-10-PCS; principal; 2021-07-07)
PROC: 0WQF0ZZ Repair Abdominal Wall, Open Approach (ICD-10-PCS; 2021-07-07)
PROC: 0W9G0ZZ Drainage of Peritoneal Cavity, Open Approach (ICD-10-PCS; 2021-07-07)
PROC: 0D9630Z Drainage of Stomach with Drainage Device, Percutaneous Approach (ICD-10-PCS; 2021-07-15)
DX: T81.43XA Infection following a procedure, organ and space surgical site, initial encounter (principal); K65.1 Peritoneal abscess; K63.1 Perforation of intestine (nontraumatic); A41.9 Sepsis, unspecified organism; T81.31XA Disruption of external operation (surgical) wound, not elsewhere classified, initial encounter; N39.0 Urinary tract infection, site not specified; J98.11 Atelectasis; T79.7XXA Traumatic subcutaneous emphysema, initial encounter; Z16.24 Resistance to multiple antibiotics; K56.7 Ileus, unspecified; D62 Acute posthemorrhagic anemia; E44.0 Moderate protein-calorie malnutrition; T81.41XA Infection following a procedure, superficial incisional surgical site, initial encounter; E87.6 Hypokalemia; E83.42 Hypomagnesemia; D50.9 Iron deficiency anemia, unspecified; K43.2 Incisional hernia without obstruction or gangrene; K66.0 Peritoneal adhesions (postprocedural) (postinfection); Z20.822 Contact with and (suspected) exposure to COVID-19; Z53.1 Procedure and treatment not carried out because of patient's decision for reasons of belief and group pressure; Y83.8 Other surgical procedures as the cause of abnormal reaction of the patient, or of later complication, without mention of misadventure at the time of the procedure; Z90.49 Acquired absence of other specified parts of digestive tract; Y92.89 Other specified places as the place of occurrence of the external cause; Z68.24 Body mass index [BMI] 24.0-24.9, adult; Z82.3 Family history of stroke; Z84.1 Family history of disorders of kidney and ureter; Z82.49 Family history of ischemic heart disease and other diseases of the circulatory system
CPT/HCPCS: 10030; 36415; 36600; 71045; 74177; 74178; 77012; 80048; 80053; 80202; 81001; 82607; 82728; 82746; 82803; 83540; 83550; 83605; 83690; 83735; 84100; 84132; 84145; 84443; 84484; 85025; 85027; 85045; 85610; 85651; 85730; 86140; 87040; 87070; 87071; 87076; 87077; 87186; 87205; 87635; 93005; 97039; A4344; G0378; J1100; J1450; J1650; J1756; J1885; J2175; J2250; J2405; J2543; J2704; J2710; J2765; J3010; J3370; J3475; J3480; J3490; J7030; J7050; J7120; P9045; P9047; Q9963; Q9967